=== PATIENT | female | born 1995 | race Caucasian/White ===

== ENCOUNTER 2016-07-16 08:30 | Inpatient (IN) | payer OTHER ==
[~2016-07-16] VITALS: Ht 157.5 cm; Wt 70.1 kg
[2016-07-16 08:52] VITALS: Ht 157.5 cm; Wt 70.1 kg
[2016-07-16] MEDS ORDERED: LACTATED RINGER'S 1,000 ML IV SCH (08:54)
[2016-07-16] MEDS ORDERED: BUTORPHANOL 2 MG INJ IV PRN (09:00)
[2016-07-16] MEDS ORDERED: LIDOCAINE 1% (MPF) 30 ML INJ INJ PRN (09:00)
[2016-07-16] MEDS ORDERED: LACTATED RINGER'S 1,000 ML IV PRN (09:00)
[2016-07-16] MEDS ORDERED: AMPICILLIN 2 GM/NS (PMX) 100 ML IV ONE (09:00)
[2016-07-16] MEDS ORDERED: CARBOPROST 250 MCG INJ IM PRN (09:00)
[2016-07-16] MEDS ORDERED: OXYTOCIN 30 UNITS/LR 500 ML IV PRN (09:00)
[2016-07-16] MEDS ORDERED: IBUPROFEN 600 MG TAB PO PRN (09:00)
[2016-07-16] MEDS ORDERED: METHYLERGONOVINE 0.2 MG INJ IM PRN (09:00)
[2016-07-16] MEDS ORDERED: OXYTOCIN 30 UNITS/LR 500 ML IV SCH ×2 (09:00)
[2016-07-16] MEDS ORDERED: MISOPROSTOL 200 MCG TAB PR PRN (09:00)
[2016-07-16 09:33] LABS: ADD SCAN DIFF NO
[2016-07-16 09:40] LABS: BASOPHILS % 0.4 % (0.0-2.0); EOSINOPHILS # 0.1 10^3/ul (0.0-0.5); EOSINOPHILS % 0.9 % (0.0-7.0); HEMATOCRIT 34.8 % (37.0-47.0); HEMOGLOBIN 11.2 g/dl (12.0-16.0); LYMPHOCYTES # 1.4 10^3/ul (0.8-2.9); LYMPHOCYTES % 17.4 % (15.0-51.0); MEAN CORPUSCULAR HEMOGLOBIN 26.7 pg (29.0-33.0); MEAN CORPUSCULAR HGB CONC 32.2 g/dl (32.0-37.0); MEAN CORPUSCULAR VOLUME 82.9 fl (82.0-101.0); MEAN PLATELET VOLUME 11.5 fl (7.4-10.4); MONOCYTE # 0.4 10^3/ul (0.3-0.9); MONOCYTES % 5.2 % (0.0-11.0); NEUTROPHILS % 75.1 % (39.0-77.0); PLATELET COUNT 251 10^3/UL (140-415); RED CELL DISTRIBUTION WIDTH 13.8 % (11.5-14.5)
[2016-07-16 09:46] LABS: INR 0.95; PARTIAL THROMBOPLASTIN TIME 28.9 Sec (25.0-35.0); PROTIME 12.7 Sec (12.2-14.2)
[2016-07-16] MEDS ORDERED: FENTAnyl 2MCG/ML-ROPIV 0.2% 100 ML ONE (10:35)
[2016-07-16] MEDS ORDERED: AMPICILLIN 1 GM/NS (PMX) 50 ML IV SCH (13:00)
[2016-07-16] MEDS ORDERED: ONDANSETRON 4 MG INJ IV PRN ×2 (13:00→16:00)
[2016-07-16] MEDS ORDERED: ZOLPIDEM 5 MG TAB PO PRN (13:00)
[2016-07-16] MEDS ORDERED: NALOXONE (0.4 MG/ML) INJ IV PRN (13:00)
[2016-07-16] MEDS ORDERED: DIPHENHYDRAMINE 50 MG INJ IV PRN (13:00)
[2016-07-16] MEDS ORDERED: FENTAnyl 2MCG/ML-ROPIV 0.2% 100 ML BAG EPI SCH (13:00)
[2016-07-16] MEDS ORDERED: HYDROmorphONE 1 MG/ML SYG IV PRN ×2 (13:00)
[2016-07-16 15:50] VITALS: BP 113/64; PULSE 71; RESP 16
[2016-07-16] MEDS ORDERED: ACETAMINOPHEN 325 MG TAB PO PRN (16:00)
[2016-07-16] MEDS ORDERED: ACETAMINOPHEN/CODEINE #3 TAB PO PRN ×2 (16:00)
[2016-07-16] MEDS ORDERED: WITCH HAZEL/GLYCERIN PAD PR PRN (16:00)
[2016-07-16] MEDS ORDERED: BENZOCAINE 20% 56 ML SPRAY TOP PRN (16:00)
[2016-07-16] MEDS ORDERED: LANOLIN 7 GM TUBE TOP PRN (16:00)
[2016-07-16] MEDS ORDERED: DIBUCAINE 1% 30 GM OINT PR PRN (16:00)
[2016-07-16] MEDS ORDERED: OXYCODONE/ASPIRIN (4.88/325) TAB PO PRN ×2 (16:00)
--- NOTE | 2016-07-16 16:17 | LDN ---
Date/Time of Note Date/Time of Note DATE: 07/16/16 TIME: 16:12 Delivery Summary Normal spontaneous vaginal delivery of the baby girl from JOSHUA position shoulders delivered without any difficulty rest of the baby's body followed cord was clamped after stopped pulsation, placenta spontaneous expulsion inspected complete 250-300 cc0. Weeks of Gestation 40 weeks 2 days Placenta Delivered: Spontaneously Meconium: none Episiotomy: No Perineal laceration: 0 Anesthesia type: Epidural Estimated blood loss: 250 Sponge & Needle done & correct: Yes All needle counts correct: Yes Any foreign bodies felt in the: No Problems: Infant Delivery Information Sex Infant Sex: female Apgars 1 Minute: 9 5 Minute: 9 Suctioning Nose & mouth suctioned at merlyn: Yes Delee suction performed: No Umbilical Cord Umbilical cord with: 3 Vessels Cord presentations: no nuchal cord Cord Blood was obtained: Yes IGNCAIA NEVAREZ MD Jul 16, 2016 16:17
--- NOTE | 2016-07-16 16:22 | HP ---
Date/Time of Note Date/Time of Note DATE: 07/16/16 TIME: 16:17 OB - History Hx of Present Free Text/Dictation 40 weeks [address] [facility] in active labor pelvic examination on admission cervix 7-8 cm dilated 80% effaced vertex at -2 station patient transferred from triage unit to labor and delivery room. Estimated Due Date: Jul 14, 2016 : 2 Para: 1 Care: Good Care Ultrasounds: Normal mid trimester US Obstetrical Complications: None Medical Complications: None Past Family/Social History * Past Medical, Surgical, Family and Obstetric Histories reviewed from chart. Rubella: immune RPR/VDRL: Negative GBS Status: Negative HBsAG: Negative OB Admission Exam Physical Exam HEENT: WNL Heart: Rhythm Normal Lungs: Clear, Equal Abdomen: WNL Extremities: Normal Reflexes: Normal Cervical Dilatation: 7cm Effacement: 75% Station: 0 Membranes: Ruptured Amniotic Fluid: Clear Heart Rate: 120's Accelerations: Accelerations Present Varibility: Moderate Contractions on Admission: < 5 Minutes Apart Intensity: Firm Last 72 hours Lab Results CBC & BMP 07/16/16 09:14 OB Assessment/Plan Reason for admission: active labor IGNACIA NEVAREZ MD Jul 16, 2016 16:22
[2016-07-16] MEDS: IBUPROFEN 600 MG TAB PO SCH ×2 (17:57→23:43)
[2016-07-16] MEDS: OXYTOCIN 30 UNITS/LR 500 ML IV SCH ×2 (17:59→22:07)
[2016-07-16 19:30] VITALS: BP 111/73; PULSE 72; RESP 19
[2016-07-16] MEDS: SENNA/DOCUSATE NA (8.6MG/50MG) TAB PO SCH (20:53)
[2016-07-17 04:00] VITALS: BP 99/64; PULSE 72; RESP 18
[2016-07-17] MEDS: IBUPROFEN 600 MG TAB PO SCH ×3 (05:29→18:19)
[2016-07-17 08:00] VITALS: BP 107/69; PULSE 69; RESP 17
[2016-07-17 08:06] LABS: ADD SCAN DIFF NO
[2016-07-17 08:07] LABS: BASOPHILS % 0.4 % (0.0-2.0); EOSINOPHILS # 0.1 10^3/ul (0.0-0.5); EOSINOPHILS % 1.1 % (0.0-7.0); HEMOGLOBIN 10.1 g/dl (12.0-16.0); LYMPHOCYTES # 1.8 10^3/ul (0.8-2.9); LYMPHOCYTES % 22.8 % (15.0-51.0); MEAN CORPUSCULAR HEMOGLOBIN 26.4 pg (29.0-33.0); MEAN CORPUSCULAR HGB CONC 31.6 g/dl (32.0-37.0); MEAN CORPUSCULAR VOLUME 83.8 fl (82.0-101.0); MEAN PLATELET VOLUME 11.1 fl (7.4-10.4); MONOCYTE # 0.5 10^3/ul (0.3-0.9); NEUTROPHIL # 5.5 10^3/ul (1.6-7.5); NEUTROPHILS % 69.1 % (39.0-77.0); PLATELET COUNT 206 10^3/UL (140-415); RED BLOOD COUNT 3.82 10^6/ul (4.20-5.40); RED CELL DISTRIBUTION WIDTH 14.1 % (11.5-14.5); WHITE BLOOD COUNT 7.9 10^3/ul (4.8-10.8)
[2016-07-17] MEDS: SENNA/DOCUSATE NA (8.6MG/50MG) TAB PO SCH ×2 (09:25→20:50)
[2016-07-17 12:45] VITALS: BP 100/58; PULSE 72; RESP 16
[2016-07-17 15:57] VITALS: BP 114/67; PULSE 65; RESP 14
--- NOTE | 2016-07-17 16:09 | PN ---
Date/Time of Note Date/Time of Note DATE: 07/17/16 TIME: 16:06 OB Subjective Subjective Subjective July 17, 2006 Obstructive contrast Post day 1 Patient is doing well, Ambulatory She is afebrile Abdomen is soft , Fundus is firm Moderate amount of lochia Breasts are soft, Nipples are intact No calf tenderness. Perineum is healing well. Breast feeding the new born. This patient is doing fairly well after her delivery She is ambulatory not much of a complaint [place] is also doing well Laboratory Tests Test 07/17/16 07:54 White Blood Count 7.910^3/ul Red Blood Count 3.8210^6/ul Hemoglobin 10.1g/dl Hematocrit 32.0% Mean Corpuscular Volume 83.8fl Mean Corpuscular Hemoglobin 26.4pg Mean Corpuscular Hemoglobin Concent 31.6g/dl Red Cell Distribution Width 14.1% Platelet Count 14475^3/UL Mean Platelet Volume 11.1fl Neutrophils % 69.1% Lymphocytes % 22.8% Monocytes % 6.0% Eosinophils % 1.1% Basophils % 0.4% Nucleated Red Blood Cells % 0.0/100WBC Neutrophils # 5.510^3/ul Lymphocytes # 1.810^3/ul Monocytes # 0.510^3/ul Eosinophils # 0.110^3/ul Basophils # 0.010^3/ul Nucleated Red Blood Cells # 0.010^3/ul Current Medications Medications (Trade) Dose Ordered Sig/Patrick Route PRN Reason Start Time Stop Time Status Last Admin Dose Admin Lactated Ringer's 1,000 ml @ 125 mls/hr Q8H IV 07/16/16 08:54 07/17/16 08:57 DC 07/16/16 09:22 Ampicillin 100 ml @ 100 mls/hr ONCE ONCE IV 07/16/16 09:00 07/16/16 09:59 DC 07/16/16 09:41 Ampicillin (Ampicillin 1 Gm/ NS (Pmx)) 50 ml @ 100 mls/hr Q4H IV 07/16/16 13:00 07/16/16 15:48 DC 07/16/16 12:55 Butorphanol Tartrate (Stadol) 2 mg Q2H PRN IV PAIN 07/16/16 09:00 Lidocaine 30 ml 30 ml ONCE PRN INJ EPISIOTOMY/TEARING 07/16/16 09:00 07/16/16 15:48 DC Oxytocin/Lactated Ringer's 500 ml @ 125 mls/hr ONCE -MAY REPEAT X1 IV 07/16/16 09:00 07/16/16 15:48 DC 07/16/16 14:32 Oxytocin/Lactated Ringer's 500 ml @ 125 mls/hr ONCE IV 07/16/16 09:00 07/16/16 14:32 Ibuprofen 600 mg 600 mg ONCE PRN PO Mild Pain (Pain Score 1-3) 07/16/16 09:00 Lactated Ringer's 1,000 ml @ 2,000 mls/hr Q30M PRN IV PRE-EPIDURAL BOLUS 07/16/16 09:00 07/16/16 15:48 DC 07/16/16 10:37 Oxytocin/Lactated Ringer's 500 ml @ 0 mls/hr ONCE PRN IV For Hemorrhage Management 07/16/16 09:00 07/16/16 15:48 DC Methylergonovine Maleate (Methergine) 0.2 mg ONCE PRN IM VAGINAL BLEEDING 07/16/16 09:00 07/16/16 15:48 DC Carboprost Tromethamine (Hemabate) 250 mcg ONCE PRN IM VAGINAL BLEEDING 07/16/16 09:00 Misoprostol 1000 mcg 1,000 mcg ONCE PRN IA VAGINAL BLEEDING 07/16/16 09:00 07/16/16 15:48 DC Fentanyl/ Ropivacaine 100 ml @ ud STK-MED ONCE .ROUTE 07/16/16 10:35 07/16/16 10:36 DC Naloxone HCl (Narcan) 0.1 mg Q2M PRN IV FOR RESP RATE 8 OR LESS 07/16/16 13:00 07/17/16 12:59 DC Hydromorphone HCl (Dilaudid) 0.2 mg Q3H PRN IV PAIN LEVEL 1-5 07/16/16 13:00 07/16/16 15:48 DC Hydromorphone HCl (Dilaudid) 0.4 mg Q3H PRN IV PAIN LEVEL 6-10 07/16/16 13:00 07/16/16 15:48 DC Diphenhydramine HCl (Benadryl) 25 mg Q6H PRN IV ITCHING 07/16/16 13:00 07/17/16 12:59 DC Ondansetron HCl (Zofran Inj) 4 mg Q6H PRN IV NAUSEA AND/OR VOMITING 07/16/16 13:00 07/16/16 15:48 DC Zolpidem Tartrate (Ambien) 5 mg HS MAY REPEAT X 1 PRN PO INSOMNIA 07/16/16 13:00 07/16/16 15:48 DC Fentanyl/ Ropivacaine 100 ml 100 ml EPIDURAL INFUSION EPI 07/16/16 13:00 07/16/16 15:48 DC Oxytocin/Lactated Ringer's 500 ml @ 125 mls/hr Q4H IV 07/16/16 15:45 07/16/16 23:44 DC 07/16/16 22:07 Ibuprofen (Motrin) 600 mg Q6 PO 07/16/16 18:00 07/17/16 12:42 Acetaminophen (Tylenol Tab) 650 mg Q4H PRN PO PAIN LEVEL 1-5 07/16/16 16:00 Acetaminophen/ Codeine Phosphate (Tylenol No.3) 1 tab Q4H PRN PO PAIN LEVEL 1-5 07/16/16 16:00 Acetaminophen/ Codeine Phosphate (Tylenol No.3) 2 tab Q4H PRN PO PAIN LEVEL 6-10 07/16/16 16:00 Oxycodone/Aspirin (Percodan) 1 tab Q3H PRN PO PAIN LEVEL 1-5 07/16/16 16:00 Oxycodone/Aspirin (Percodan) 2 tab Q3H PRN PO PAIN LEVEL 6-10 07/16/16 16:00 Ondansetron HCl (Zofran Inj) 4 mg Q6H PRN IV NAUSEA AND/OR VOMITING 07/16/16 16:00 Senna/Docusate Sodium (Senokot-S) 1 tab BID PO 07/16/16 21:00 07/17/16 09:25 Witch [place]/ Glycerin (Tucks Pads) 1 pad BEDSIDE MEDICATION PRN IA HEMORRHOID/EPISIOTMY PAIN 07/16/16 16:00 07/16/16 16:36 Benzocaine (Dermoplast [place]) 1 spray BEDSIDE MEDICATION PRN TOP HEMORRHOID/EPISIOTMY PAIN 07/16/16 16:00 07/16/16 16:36 Dibucaine (Nupercainal) 1 applic BEDSIDE MEDICATION PRN IA HEMORRHOID/EPISIOTMY PAIN 07/16/16 16:00 Lanolin (Isd-K-[id number]) 1 applic BEDSIDE MEDICATION PRN TOP BEDSIDE FOR HAI TO NIPPLES 07/16/16 16:00 07/16/16 16:36 Measles/Mumps/ Rubella Vaccine Live (Mmr Ii Vaccine) 0.5 ml ONCE ONCE SC* 07/18/16 09:00 07/18/16 09:01 Influenza Virus Vaccine (Fluzone) 0.5 ml ONCE ONCE IM* 07/17/16 17:00 07/17/16 17:01 07/17/16 09:26 Her episiotomy is healing well AKILA CHRISTINE MD Jul 17, 2016 16:08
[2016-07-17] MEDS ORDERED: INFLUENZA VIRUS VACCINE 0.5 ML SYG IM* ONE (17:00)
[2016-07-17 19:55] VITALS: BP 112/60; PULSE 81; RESP 18
[2016-07-18] MEDS: IBUPROFEN 600 MG TAB PO SCH ×3 (00:09→11:19)
[2016-07-18 04:35] VITALS: BP 99/55; PULSE 72; RESP 18
[2016-07-18 08:30] VITALS: BP 106/66; PULSE 71; RESP 18
[2016-07-18] MEDS: SENNA/DOCUSATE NA (8.6MG/50MG) TAB PO SCH (08:42)
[2016-07-18] MEDS ORDERED: MEASLES,MUMPS,RUBELLA VACCINE INJ SC* ONE (09:00)
--- NOTE | 2016-07-18 09:56 | PD.PPDC ---
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
--- NOTE | 2016-07-18 09:59 | DS ---
Date/Time of Note Date/Time of Note DATE: 07/18/16 TIME: 09:56 Discharge Summary Admission/Discharge Info Admit Date/Time Jul 16, 2016 at 08:55 Discharge Date/Time July 18 at 955 Final Diagnosis Term ,second day post normal vaginal delivery, Patient Condition: Good Procedures Normal spontaneous vaginal delivery Hx of Present Illness term in labor Hospital Course Uneventful Follow-up Plan Appointment in 2 weeks for check IGNACIA NEVAREZ MD Jul 18, 2016 09:59
[2016-07-18] MEDS ORDERED: DIPHTH/TET/ACEL PERTUSS (ADULT) 0.5 ML VIAL IM* ONE (10:30)
== END 2016-07-18 13:30 | disposition home or self-care (01) | DRG 775 ==
LOC: OBT 08:30 → L-D 08:31 → OBT 08:55 → L-D 08:55 → PP1 15:40
PROVIDERS: ADMIT Obstetrics & Gynecology; ATTEND Obstetrics & Gynecology
PROC: 10E0XZZ Delivery of Products of Conception, External Approach (ICD-10-PCS; principal; 2016-07-16)
DX: O48.0 Post-term pregnancy (principal); Z37.0 Single live birth; Z3A.40 40 weeks gestation of pregnancy
CPT/HCPCS: 62319; 85025; 85610; 85730; 86592; 86900; 86901; 87340; 90686; 90715; G0463; J0290; J2590; J3010; J7120